=== PATIENT | male | born 1990 | race Caucasian/White ===

== ENCOUNTER 2019-03-07 17:28 | Emergency (ER) | payer SELFPAY ==
[2019-03-07 17:28] VITALS: BP 136/94; PULSE 76; RESP 14; TEMP 36.6; O2SAT 98; BMI 25.6
[2019-03-07 18:40] VITALS: RESP 18
--- NOTE | 2019-03-07 18:41 | ED.VIS.UPPEX ---
History of Present Illness Chief Complaint: Laceration Narrative: Patient presenting secondary to a laceration of the left index finger. He reports he was using a knife, and accidentally swiped across his left index finger. He is right-hand dominant. He reports that his tetanus is up-to-date. Pain is mild, worse with palpation bleeding was controlled with pressure. Past Medical History - Allergies and Home Meds Allergies/Adverse Reactions: Allergies No Known Allergies Allergy (Verified 03/07/19 17:32) Primary Care Physician: Adrianna Grossman NP-C [Primary Care Provider] - Past Medical History: None Smoking Status: Never smoker Review of Systems Skin: Reports: Wounds Physical Exam Vital Signs/Narrative: Vital Signs Temp Pulse Resp BP Pulse Ox 03/07/19 17:28 97.8 F 76 14 136/94 H 98 Inital Vital Signs reviewed: Yes Left Finger: - - Examination the patient's left hand shows a laceration of the index finger over the dorsal and radial portion of the proximal interphalangeal joint measuring about 2 cm. Normal flexion and extension of the finger normal capillary refill normal two-point discrimination. Diagnostic/Tx/Re-eval - Medical Decision Making Patient presented secondary to a finger laceration. Laceration was addressed as noted in the procedure note. Full exploration of the wound seems to show no evidence of violation of the joint capsule or any evidence of extensor tendon laceration. Patient was placed in a AlumaFoam splint and was instructed on follow-up with primary care for suture removal in 10 to 14 days. Procedures - Lacerations No standard instances Comment: Patient was anesthetized using 1% lidocaine. Digital block was performed using 4 cc of lidocaine, patient had incomplete anesthesia so a local anesthetic was then infiltrated using about 2 cc of lidocaine. The wound was copiously irrigated with saline. I was not able to appreciate any sort of foreign material. Full flexion and extension of the wound with direct light and retraction with hemostats was performed, I did not see any evidence of tendon laceration or joint capsule compromise. Wound was then approximated using 4 simple interrupted 4-0 nylon sutures. There is good hemostasis and good approximation. Patient will be discharged. Disposition: Home ED Disposition - Plan for ED Patient: Disposition: Home or Assisted Living Diagnosis: Laceration of index finger Instructions: LACERATION, All Referrals: Adrianna Grossman NP-C [Primary Care Provider] - 10-14 Days suture removal
== END 2019-03-07 18:50 | disposition home or self-care (01) ==
PROVIDERS: Emergency Provider Emergency Medicine; Family Provider Nurse Practitioner Family; PCP Nurse Practitioner Family
DX: S61.211A Laceration without foreign body of left index finger without damage to nail, initial encounter (principal); W26.0XXA Contact with knife, initial encounter; Y93.9 Activity, unspecified; Y92.9 Unspecified place or not applicable
CPT/HCPCS: 12001; 99284